=== PATIENT | female | born 1960 | race Caucasian/White ===

== ENCOUNTER → 2019-08-13 11:39 | Outpatient (BNVA) | payer BC, SELFPAY | PROVIDERS: Family Provider Family Medicine; PCP Nurse Practitioner Family; Visit Provider Emergency Medicine | DX: N39.0 Urinary tract infection, site not specified (principal) | CPT/HCPCS: 81000 ==

== ENCOUNTER → 2023-04-25 11:59 | Outpatient (BNVA) | payer OTHER, SELFPAY | PROVIDERS: Family Provider Family Medicine; Visit Provider Nurse Practitioner Family | DX: R39.9 Unspecified symptoms and signs involving the genitourinary system (principal); R31.9 Hematuria, unspecified; N39.0 Urinary tract infection, site not specified | CPT/HCPCS: 81000; 87086 ==